=== PATIENT | female | born 1940 | race Caucasian/White ===

== ENCOUNTER 2021-12-06 16:44 | Outpatient (CLI) | payer MEDICARE | END 2021-12-06 16:45 | disposition home or self-care (01) | LOC: ULT 16:44 | PROVIDERS: ATTEND Internal Medicine Hematology & Oncology | DX: M79.89 Other specified soft tissue disorders (principal); M79.602 Pain in left arm ==

== ENCOUNTER 2025-08-12 10:46 | Outpatient (CLI) | payer MEDICARE | END 2025-08-12 10:47 | disposition home or self-care (01) | LOC: SCSBT 10:46 | PROVIDERS: ATTEND Physician Assistant | DX: M81.0 Age-related osteoporosis without current pathological fracture (principal); M85.852 Other specified disorders of bone density and structure, left thigh | CPT/HCPCS: 77080 ==